=== PATIENT | female | born 1960 | race Caucasian/White ===

== ENCOUNTER 2016-12-02 08:05 | Day surgery (SDC) | payer OTHER ==
--- NOTE | 2016-12-02 09:23 | Operative Note ---
Endoscopy Report Date: 12/02/16 Preoperative diagnosis: Screening colonoscopy Procedure Type of procedure: Total colonoscopy to terminal ileum with snare polypectomy 2 Indications: 56-year-old white female who has never had previous colonoscopy. Asymptomatic. Interestingly, her had recently been diagnosed with concomitant renal carcinoma and colon cancer. Consent was obtained and patient was taken to same-day surgery endoscopy procedure room. She was positioned in a lateral decubitus position. Adequate intravenous sedation was achieved. Variable stiffness Olympus colonoscope was inserted via the anus and advanced to the cecum without difficulty. Ileocecal valve and appendiceal orifice were clearly identified. Colonoscope was advanced a short distance into the terminal ileum was grossly normal. It was withdrawn into the cecum. There is a very subtle sessile polyp adjacent to the appendiceal orifice which was removed with hot snare and in a piecemeal fashion using cold biopsy forceps. Colonoscope was withdrawn through the colon with careful surveillance. In the descending colon there was a small diminutive polyp removed with hot snare. Within the rectum retroflexion was performed which revealed nonpathologic internal hemorrhoids. Colonoscope was withdrawn. Findings: Diminutive polyp 2 Recommendations: Follow-up on the histopathology. Plan for repeat colonoscopy in 3-5 years pending the pathology. at [id number]
[2016-12-02 13:49] VITALS: BP 115/69
== END 2016-12-02 09:45 | disposition home or self-care (01) ==
LOC: SDC 08:05
PROVIDERS: Surgery
PROC: 0DBM8ZX Excision of Descending Colon, Via Natural or Artificial Opening Endoscopic, Diagnostic (ICD-10-PCS; 2016-12-02)
PROC: 0DBH8ZX Excision of Cecum, Via Natural or Artificial Opening Endoscopic, Diagnostic (ICD-10-PCS; principal; 2016-12-02 08:30)
DX: Z12.11 Encounter for screening for malignant neoplasm of colon (principal); D12.0 Benign neoplasm of cecum; D12.4 Benign neoplasm of descending colon